=== PATIENT | male | born 1970 | race Caucasian/White ===

== ENCOUNTER → 2016-11-20 | Outpatient (CLI) | payer MEDICAID ==
[~2016-11-20] MED LIST: 00186-0370-20 IH; ASPIRIN 81M81 MG/TA2 PO; CELEBREX 200MG200 MG PO; CLEOCIN HCL300 MG PO; GLUCOPHAGE1000 MG PO; KEPPRA 500MG500 MG PO; LEVAQUIN 750MG750 M1 PO; LIPITOR 40MG TA40 MG PO; NEBULIZER; NORCO 325 MG-51 TAB PO; NYSTATIN OR100 MU/ML PO; PREDNISONE20 MG PO; SENOKOT S 50 MG1 TAB PO; SOMA 350MG350 MG/TAB PO; VALIUM 5MG T5 MG/TAB PO; VENTOLIN0.09 MG IH; VIMPAT100 MG PO; ZITHROMAX 250M250 MG PO; ZOCOR 20MG20 MG PO
[2016-11-20 14:39] LABS: ADD PATHOLOGY DIFF REVIEW NO
[2016-11-20 14:48] LABS: HEMATOCRIT 45.1 % (42.0-52.0); HEMOGLOBIN 15.5 g/dl (13.5-18.0); MEAN CELL VOLUME 88 fl (80.0-100.0); MEAN CORPUSCULAR HEMOGLOBIN 30 pg (27.0-31.0); MEAN CORPUSCULAR HGB CONC 34 g/dl (33.0-37.0); MEAN PLATELET VOLUME 9.6 fl (7.4-10.4); PLATELET COUNT 310 K/mm3 (130-400); RED BLOOD COUNT 5.12 M/mm3 (4.20-5.60); REDCELL DISTRIBUTION WIDTH-CV 13.5 % (11.5-14.5); WHITE BLOOD COUNT 9.4 K/mm3 (4.8-10.8)
[2016-11-20 14:57] LABS: ANION GAP 13 mmol/L (7-16); BLOOD UREA NITROGEN 16 mg/dL (9-20); C-REACTIVE PROTEIN < 0.5 mg/dL (0.0-0.9); CALCIUM 9.9 mg/dL (8.4-10.2); CARBON DIOXIDE 22 mmol/L (22-30); CHLORIDE 104 mmol/L (98-107); CREATININE, serum 0.68 mg/dL (0.66-1.25); GLUCOSE 174 mg/dL (74-106); POTASSIUM 4.4 mmol/L (3.4-5.0); SODIUM 139 mmol/L (137-145)
[2016-11-20 15:05] LABS: BAND 4 % (0-10); EOSINOPHIL 3 % (0-4); NEUTROPHILS 61 % (42.0-75.2); PLATELET ESTIMATE NORMAL (NORMAL); TOTAL CELLS COUNTED 100
== END ==
LOC: COL.LAB 14:09
PROVIDERS: Internal Medicine Pulmonary Disease
DX: J18.8 Other pneumonia, unspecified organism (principal)

== ENCOUNTER → 2016-11-27 | Outpatient (CLI) | payer MEDICAID | LOC: COL.PUL 14:48 | DX: J18.1 Lobar pneumonia, unspecified organism (principal) ==

== ENCOUNTER → 2016-12-17 | Outpatient (CLI) | payer MEDICAID | LOC: COL.RAD 11:15 | DX: M25.561 Pain in right knee (principal) ==

== ENCOUNTER → 2017-01-16 | Outpatient (CLI) | payer MEDICAID | LOC: COL.PUL 12:55 | DX: R06.02 Shortness of breath (principal); R94.2 Abnormal results of pulmonary function studies | CPT/HCPCS: J7674 ==

== ENCOUNTER 2017-01-18 09:59 | Emergency (ER) | payer MEDICAID ==
[~2017-01-18] VITALS: Ht 167.6 cm; Wt 89.5 kg
[~2017-01-18 09:59] MED LIST changes: -00186-0370-20 IH; -NYSTATIN OR100 MU/ML PO
[2017-01-18 10:04] VITALS: BP 155/117; PULSE 94; TEMP 98.4
[2017-01-18] MEDS ORDERED: 00186-0370-20 IH (10:21)
[2017-01-18] MEDS ORDERED: NYSTATIN OR100 MU/ML PO (10:34)
== END 2017-01-18 10:48 | disposition home or self-care (01) ==
LOC: COL.ER 09:59
DX: B37.0 Candidal stomatitis (principal); E11.65 Type 2 diabetes mellitus with hyperglycemia; I10 Essential (primary) hypertension; Z79.84 Long term (current) use of oral hypoglycemic drugs; F17.220 Nicotine dependence, chewing tobacco, uncomplicated

== ENCOUNTER 2017-03-05 16:53 | Emergency (ER) | payer MEDICAID ==
[~2017-03-05] VITALS: Ht 167.6 cm; Wt 81.8 kg
[~2017-03-05 16:53] MED LIST changes: +00186-0370-20 IH; +NYSTATIN OR100 MU/ML PO
[2017-03-05 17:37] LABS: PH 5 (5-8); SQUAMOUS EPITHELIAL None Seen /hpf; URINE APPEARANCE Clear; URINE BACTERIA None Seen /hpf; URINE BILIRUBIN Negative (NEGATIVE); URINE BLOOD Negative (NEGATIVE); URINE COLOR Yellow; URINE GLUCOSE 3+ (NEGATIVE); URINE KETONE Trace (NEGATIVE); URINE RBC 0-2 /hpf; URINE UROBILINOGEN Negative (NEGATIVE); URINE WBC 0-2 /hpf
[2017-03-05 18:09] LABS: BASO # 0.1 (0.0-0.2); BASO % 0.5 % (0.0-2.0); EOS # 0.2 (0.0-0.7); EOS % 1.2 % (0-4.0); GRAN # 10.7 (1.4-6.5); GRAN % 72.6 % (42.2-75.2); HEMATOCRIT 50.5 % (42.0-52.0); HEMOGLOBIN 17.5 g/dl (13.5-18.0); LYMPH # 2.2 (1.2-3.4); LYMPH % 15.2 % (20.0-51.0); MEAN CELL VOLUME 89 fl (80.0-100.0); MEAN CORPUSCULAR HEMOGLOBIN 31 pg (27.0-31.0); MEAN CORPUSCULAR HGB CONC 35 g/dl (33.0-37.0); MONO # 1.5 (0.1-0.6); MONO % 10.1 % (1.7-9.3); PLATELET COUNT 354 K/mm3 (130-400); RED BLOOD COUNT 5.69 M/mm3 (4.20-5.60); REDCELL DISTRIBUTION WIDTH-CV 12.9 % (11.5-14.5); WHITE BLOOD COUNT 14.7 K/mm3 (4.8-10.8)
[2017-03-05 18:21] LABS: CREATININE, serum 0.78 mg/dL (0.66-1.25); POTASSIUM 3.9 mmol/L (3.4-5.0)
[2017-03-05] MEDS ORDERED: LEVAQUIN 750MG750 M1 PO (18:36)
[2017-03-05] MEDS ORDERED: NYSTATIN OR100 MU/ML PO (18:37)
[2017-03-05 18:38] VITALS: TEMP 98.1
[2017-03-05 19:21] LABS: CHLAMYDIA/TRACH by PCR Male NOT DETECTED; Neisseria Gon by PCR Male NOT DETECTED
[2017-03-05 19:23] VITALS: BP 125/101; PULSE 111
== END 2017-03-05 19:27 | disposition home or self-care (01) ==
LOC: COL.ER 16:53
PROVIDERS: Emergency Medicine
DX: J01.90 Acute sinusitis, unspecified (principal); H66.91 Otitis media, unspecified, right ear; J45.909 Unspecified asthma, uncomplicated; B37.0 Candidal stomatitis; R30.0 Dysuria; Z88.0 Allergy status to penicillin
CPT/HCPCS: J7030

== ENCOUNTER 2017-11-03 16:31 | Emergency (ER) | payer MEDICAID ==
[~2017-11-03] VITALS: Ht 167.6 cm; Wt 84.1 kg
[2017-11-03 16:33] VITALS: BP 143/90; PULSE 77; TEMP 97.9
[2017-11-03] MEDS ORDERED: CLEOCIN HCL300 MG PO (16:48)
[2017-11-03] MEDS ORDERED: NORCO 325 MG-51 TAB PO (16:48)
== END 2017-11-03 16:56 | disposition home or self-care (01) ==
LOC: COL.ER 16:31
DX: K08.89 Other specified disorders of teeth and supporting structures (principal); J45.909 Unspecified asthma, uncomplicated; F17.210 Nicotine dependence, cigarettes, uncomplicated; Z79.84 Long term (current) use of oral hypoglycemic drugs; Z79.82 Long term (current) use of aspirin

== ENCOUNTER 2017-11-20 10:03 | Emergency (ER) | payer MEDICAID ==
[~2017-11-20] VITALS: Ht 167.6 cm; Wt 84.1 kg
[2017-11-20 10:07] VITALS: BP 161/91; PULSE 89; TEMP 98.1
[2017-11-20] MEDS ORDERED: CLEOCIN HCL300 MG PO (10:42)
== END 2017-11-20 11:01 | disposition home or self-care (01) ==
LOC: COL.ER 10:03
DX: K02.9 Dental caries, unspecified (principal); K04.7 Periapical abscess without sinus; F41.9 Anxiety disorder, unspecified; F17.200 Nicotine dependence, unspecified, uncomplicated; Z79.82 Long term (current) use of aspirin

== ENCOUNTER 2017-12-26 12:55 | Emergency (ER) | payer MEDICAID ==
[~2017-12-26] VITALS: Ht 167.6 cm; Wt 85.5 kg
[2017-12-26 12:57] VITALS: TEMP 98.2
[2017-12-26] MEDS ORDERED: DOXYCYCLINE 10100 MG PO (15:00)
[2017-12-26] MEDS ORDERED: PREDNISONE20 MG PO (15:00)
[2017-12-26] MEDS ORDERED: PHENERGAN W/CO120 M1 PO (15:00)
[2017-12-26 15:45] VITALS: BP 168/101; PULSE 97
== END 2017-12-26 16:44 | disposition home or self-care (01) ==
LOC: COL.ER 12:55
DX: J45.909 Unspecified asthma, uncomplicated (principal); J20.9 Acute bronchitis, unspecified; G89.29 Other chronic pain; Z79.84 Long term (current) use of oral hypoglycemic drugs; Z79.82 Long term (current) use of aspirin
CPT/HCPCS: J7512

== ENCOUNTER 2018-04-26 17:25 | Emergency (ER) | payer MEDICAID ==
[~2018-04-26] VITALS: Ht 167.6 cm; Wt 86.4 kg
[~2018-04-26 17:25] MED LIST changes: +DOXYCYCLINE 10100 MG PO; +PHENERGAN W/CO120 M1 PO
[2018-04-26 17:31] VITALS: TEMP 97.8
[2018-04-26 17:49] LABS: BASO # 0.1 (0.0-0.2); BASO % 1.2 % (0.0-2.0); EOS # 0.5 (0.0-0.7); EOS % 5.2 % (0-4.0); GRAN # 5.8 (1.4-6.5); GRAN % 65.7 % (42.2-75.2); HEMATOCRIT 46.1 % (42.0-52.0); HEMOGLOBIN 16.3 g/dl (13.5-18.0); LYMPH # 1.9 (1.2-3.4); LYMPH % 21.5 % (20.0-51.0); MEAN CELL VOLUME 88 fl (80.0-100.0); MEAN CORPUSCULAR HEMOGLOBIN 31 pg (27.0-31.0); MEAN CORPUSCULAR HGB CONC 35 g/dl (33.0-37.0); MONO # 0.6 (0.1-0.6); MONO % 6.2 % (1.7-9.3); PLATELET COUNT 283 K/mm3 (130-400); RED BLOOD COUNT 5.26 M/mm3 (4.20-5.60); REDCELL DISTRIBUTION WIDTH-CV 12.8 % (11.5-14.5)
[2018-04-26 17:56] LABS: ALBUMIN 4.2 gm/dL (3.5-5.0); BILIRUBIN,TOTAL 0.2 mg/dL (0.0-1.0); CALCIUM 9.7 mg/dL (8.4-10.2); CREATININE, serum 0.72 mg/dL (0.66-1.25); POTASSIUM 3.7 mmol/L (3.4-5.0); TOTAL PROTEIN 8.2 gm/dL (6.4-8.2)
[2018-04-26 18:12] LABS: PROLACTIN 13.1 ng/mL (3.7-17.9)
[2018-04-26 19:16] LABS: COLLECTION METHOD CLEAN CATCH
[2018-04-26 19:23] LABS: MUCOUS Present /lpf; PH 5 (5-8); SQUAMOUS EPITHELIAL None Seen /hpf; URINE APPEARANCE Clear; URINE BACTERIA None Seen /hpf; URINE BILIRUBIN Negative (NEGATIVE); URINE BLOOD Negative (NEGATIVE); URINE COLOR Yellow; URINE GLUCOSE 3+ (NEGATIVE); URINE KETONE Negative (NEGATIVE); URINE LEUKOCYTE ESTERASE Negative (NEGATIVE); URINE NITRATE Negative (NEGATIVE); URINE PROTEIN(semi-quant) Negative (NEGATIVE); URINE RBC 0-2 /hpf; URINE UROBILINOGEN Negative (NEGATIVE)
[2018-04-26 19:40] VITALS: BP 131/78; PULSE 75
== END 2018-04-26 19:40 | disposition home or self-care (01) ==
LOC: COL.ER 17:25
PROVIDERS: Emergency Medicine
DX: S09.90XA Unspecified injury of head, initial encounter (principal); R56.9 Unspecified convulsions; W19.XXXA Unspecified fall, initial encounter; Y92.009 Unspecified place in unspecified non-institutional (private) residence as the place of occurrence of the external cause; Z79.82 Long term (current) use of aspirin; Z79.84 Long term (current) use of oral hypoglycemic drugs
CPT/HCPCS: J1630; J2060; J3010; J7030

== ENCOUNTER 2018-05-24 17:17 | Emergency (ER) | payer MEDICAID ==
[~2018-05-24] VITALS: Ht 167.6 cm; Wt 84.1 kg
[2018-05-24 17:20] VITALS: BP 167/105; TEMP 99.3
[2018-05-24] MEDS ORDERED: NORCO 325 MG-51 TAB PO (20:31)
[2018-05-24 20:48] VITALS: PULSE 83
== END 2018-05-24 20:48 | disposition home or self-care (01) ==
LOC: COL.ER 17:17
DX: S20.211A Contusion of right front wall of thorax, initial encounter (principal); S40.021A Contusion of right upper arm, initial encounter; G40.909 Epilepsy, unspecified, not intractable, without status epilepticus; Z79.84 Long term (current) use of oral hypoglycemic drugs; Z79.82 Long term (current) use of aspirin; W01.0XXA Fall on same level from slipping, tripping and stumbling without subsequent striking against object, initial encounter; Y92.009 Unspecified place in unspecified non-institutional (private) residence as the place of occurrence of the external cause
CPT/HCPCS: A9284; J1170

== ENCOUNTER 2018-08-27 12:43 | Emergency (ER) | payer MEDICAID ==
[~2018-08-27] VITALS: Ht 167.6 cm; Wt 79.5 kg
[2018-08-27 12:46] VITALS: TEMP 98.1
[2018-08-27 14:46] LABS: BASO # 0.1 (0.0-0.2); BASO % 0.9 % (0.0-2.0); EOS # 0.3 (0.0-0.7); EOS % 2.7 % (0-4.0); GRAN # 8.4 (1.4-6.5); GRAN % 71.9 % (42.2-75.2); HEMATOCRIT 50.3 % (42.0-52.0); HEMOGLOBIN 17.6 g/dl (13.5-18.0); LYMPH # 1.8 (1.2-3.4); LYMPH % 15.5 % (20.0-51.0); MEAN CELL VOLUME 88 fl (80.0-100.0); MEAN CORPUSCULAR HEMOGLOBIN 31 pg (27.0-31.0); MEAN CORPUSCULAR HGB CONC 35 g/dl (33.0-37.0); MEAN PLATELET VOLUME 9.5 fl (7.4-10.4); MONO % 8.4 % (1.7-9.3); PLATELET COUNT 302 K/mm3 (130-400); REDCELL DISTRIBUTION WIDTH-CV 13.4 % (11.5-14.5)
[2018-08-27 14:56] LABS: ALBUMIN 4.6 gm/dL (3.5-5.0); BILIRUBIN,TOTAL 0.3 mg/dL (0.0-1.0); CALCIUM 9.4 mg/dL (8.4-10.2); CREATININE, serum 0.66 mg/dL (0.66-1.25); TOTAL PROTEIN 8.4 gm/dL (6.4-8.2)
[2018-08-27] MEDS ORDERED: ZITHROMAX Z PA250 MG PO (15:20)
[2018-08-27] MEDS ORDERED: PREDNISONE20 MG PO (15:20)
[2018-08-27] MEDS ORDERED: NORCO 325 MG-51 TAB PO (15:20)
[2018-08-27 15:39] VITALS: BP 134/77; PULSE 88
== END 2018-08-27 15:41 | disposition home or self-care (01) ==
LOC: COL.ER 12:43
PROVIDERS: Physician Assistant
DX: J40 Bronchitis, not specified as acute or chronic (principal); J98.01 Acute bronchospasm; R07.89 Other chest pain; G89.29 Other chronic pain; F17.220 Nicotine dependence, chewing tobacco, uncomplicated; E11.9 Type 2 diabetes mellitus without complications; Z79.84 Long term (current) use of oral hypoglycemic drugs; Z88.0 Allergy status to penicillin; Z79.82 Long term (current) use of aspirin

== ENCOUNTER 2018-10-12 15:19 | Emergency (ER) | payer MEDICAID ==
[~2018-10-12] VITALS: Ht 167.6 cm; Wt 79.5 kg
[~2018-10-12 15:19] MED LIST changes: +ZITHROMAX Z PA250 MG PO
[2018-10-12 15:25] VITALS: BP 160/100; TEMP 98
[2018-10-12] MEDS ORDERED: VIMPAT200 MG PO (15:35)
[2018-10-12] MEDS ORDERED: SOMA 350MG350 MG/TAB PO (15:37)
[2018-10-12] MEDS ORDERED: NORCO 325 MG-51 TAB PO (16:28)
[2018-10-12] MEDS ORDERED: FLEXERIL 1010 MG/TAB PO (16:28)
[2018-10-12 16:41] VITALS: PULSE 94
== END 2018-10-12 16:42 | disposition home or self-care (01) ==
LOC: COL.ER 15:19
DX: M54.9 Dorsalgia, unspecified (principal); E11.9 Type 2 diabetes mellitus without complications; Z79.4 Long term (current) use of insulin; Z88.0 Allergy status to penicillin; Z88.5 Allergy status to narcotic agent; F17.290 Nicotine dependence, other tobacco product, uncomplicated; W01.0XXA Fall on same level from slipping, tripping and stumbling without subsequent striking against object, initial encounter
CPT/HCPCS: J2360

== ENCOUNTER 2019-01-27 13:35 | Emergency (ER) | payer MEDICAID ==
[~2019-01-27] VITALS: Ht 167.6 cm; Wt 85.0 kg
[~2019-01-27 13:35] MED LIST changes: +FLEXERIL 1010 MG/TAB PO; +VIMPAT200 MG PO
[2019-01-27 14:02] VITALS: TEMP 99.9
[2019-01-27 15:30] LABS: ALANINE AMINOTRANSFERASE 15 U/L (21-72); ALBUMIN 3.6 gm/dL (3.5-5.0); ALKALINE PHOSPHATASE 70 U/L (50-136); ANION GAP 11 mmol/L (7-16); AST,SGOT 33 U/L (15-37); BILIRUBIN,TOTAL 0.4 mg/dL (0.0-1.0); BLOOD UREA NITROGEN 10 mg/dL (9-20); CALCIUM 8.9 mg/dL (8.4-10.2); CARBON DIOXIDE 24 mmol/L (22-30); CHLORIDE 103 mmol/L (98-107); CREATININE, serum 0.67 mg/dL (0.66-1.25); GLUCOSE 294 mg/dL (74-106); LIPASE 21 U/L (23-300); SODIUM 138 mmol/L (137-145); TOTAL PROTEIN 7.2 gm/dL (6.4-8.2)
[2019-01-27 15:34] LABS: BASO % 0.3 % (0.0-2.0); GRAN % 91.9 % (42.2-75.2); HEMATOCRIT 40.4 % (42.0-52.0); HEMOGLOBIN 13.8 g/dl (13.5-18.0); LYMPH # 0.4 (1.2-3.4); LYMPH % 3.8 % (20.0-51.0); MEAN CELL VOLUME 89 fl (80.0-100.0); MEAN CORPUSCULAR HEMOGLOBIN 31 pg (27.0-31.0); MEAN CORPUSCULAR HGB CONC 34 g/dl (33.0-37.0); MEAN PLATELET VOLUME 10.9 fl (7.4-10.4); MONO # 0.4 (0.1-0.6); MONO % 3.3 % (1.7-9.3); PLATELET COUNT 229 K/mm3 (130-400); RED BLOOD COUNT 4.52 M/mm3 (4.20-5.60); REDCELL DISTRIBUTION WIDTH-CV 13.9 % (11.5-14.5)
[2019-01-27 15:42] LABS: TROPONIN-I < 0.012 ng/mL (0.000-0.035)
[2019-01-27 16:17] LABS: COLLECTION METHOD CLEAN CATCH
[2019-01-27 16:28] LABS: MUCOUS Present /lpf; PH 6 (5-8); SQUAMOUS EPITHELIAL None Seen /hpf; URINE APPEARANCE Clear; URINE BACTERIA None Seen /hpf; URINE BILIRUBIN Negative (NEGATIVE); URINE BLOOD 1+ (NEGATIVE); URINE COLOR Yellow; URINE GLUCOSE 3+ (NEGATIVE); URINE KETONE 1+ (NEGATIVE); URINE LEUKOCYTE ESTERASE Negative (NEGATIVE); URINE NITRATE Negative (NEGATIVE); URINE PROTEIN(semi-quant) Negative (NEGATIVE); URINE RBC 0-2 /hpf; URINE UROBILINOGEN Negative (NEGATIVE); URINE WBC 0-2 /hpf
[2019-01-27 18:58] VITALS: BP 112/74; PULSE 101
== END 2019-01-27 19:02 | disposition short-term general hospital (02) ==
LOC: COL.ER 13:35
PROVIDERS: Emergency Medicine
DX: J18.1 Lobar pneumonia, unspecified organism (principal); A41.9 Sepsis, unspecified organism; E11.9 Type 2 diabetes mellitus without complications; I10 Essential (primary) hypertension; G40.909 Epilepsy, unspecified, not intractable, without status epilepticus; J45.909 Unspecified asthma, uncomplicated; Z79.82 Long term (current) use of aspirin
CPT/HCPCS: J1956; J2405; J7030

== ENCOUNTER 2019-10-06 08:33 | Emergency (ER) | payer SELFPAY ==
[~2019-10-06] VITALS: Ht 167.6 cm; Wt 80.9 kg
[2019-10-06 08:38] VITALS: BP 143/89; TEMP 97.8
[2019-10-06] MEDS ORDERED: NORVASC 5MG5 MG/TAB PO (09:02)
[2019-10-06 10:16] VITALS: PULSE 94
[2019-10-06] MEDS ORDERED: PREDNISONE20 MG PO (10:42)
[2019-10-06] MEDS ORDERED: ZITHROMAX 250M250 MG PO (10:42)
== END 2019-10-06 10:25 | disposition home or self-care (01) ==
LOC: COL.ER 08:33
DX: J45.901 Unspecified asthma with (acute) exacerbation (principal); E11.9 Type 2 diabetes mellitus without complications; F17.220 Nicotine dependence, chewing tobacco, uncomplicated; Z79.84 Long term (current) use of oral hypoglycemic drugs; Z88.8 Allergy status to other drugs, medicaments and biological substances; Z79.82 Long term (current) use of aspirin
CPT/HCPCS: J7512

== ENCOUNTER 2020-09-25 22:05 | Emergency (ER) | payer SELFPAY ==
[~2020-09-25] VITALS: Ht 167.6 cm; Wt 84.1 kg
[~2020-09-25 22:05] MED LIST changes: +NORVASC 5MG5 MG/TAB PO
[2020-09-25 22:16] VITALS: BP 136/96; TEMP 97.8
[2020-09-25] MEDS ORDERED: NORCO 325 MG-51 TAB PO (23:57)
[2020-09-25] MEDS ORDERED: CLEOCIN HCL300 MG PO (23:57)
[2020-09-26 00:07] VITALS: PULSE 74
== END 2020-09-26 00:07 | disposition home or self-care (01) ==
LOC: COL.ER 22:05
DX: K04.7 Periapical abscess without sinus (principal); F17.200 Nicotine dependence, unspecified, uncomplicated; Z86.74 Personal history of sudden cardiac arrest; Z88.0 Allergy status to penicillin; Z88.6 Allergy status to analgesic agent; Z88.8 Allergy status to other drugs, medicaments and biological substances; Z79.84 Long term (current) use of oral hypoglycemic drugs; Z79.82 Long term (current) use of aspirin

== ENCOUNTER 2020-10-01 18:40 | Observation (INO) | payer SELFPAY ==
[~2020-10-01] VITALS: Ht 167.6 cm; Wt 75.0 kg
[2020-10-01 19:52] LABS: BASO # 0.1 (0.0-0.2); BASO % 0.9 % (0.0-2.0); EOS # 0.7 (0.0-0.7); EOS % 5.6 % (0-4.0); GRAN # 8.3 (1.4-6.5); GRAN % 65.7 % (42.2-75.2); LYMPH # 2.4 (1.2-3.4); MEAN CELL VOLUME 89 fl (80.0-100.0); MEAN CORPUSCULAR HGB CONC 34 g/dl (33.0-37.0); MEAN PLATELET VOLUME 10.3 fl (7.4-10.4); MONO # 1.1 (0.1-0.6); MONO % 8.5 % (1.7-9.3); PLATELET COUNT 262 K/mm3 (130-400); RED BLOOD COUNT 3.09 M/mm3 (4.20-5.60); REDCELL DISTRIBUTION WIDTH-CV 13.2 % (11.5-14.5)
[2020-10-01 19:53] LABS: HEMATOCRIT 27.4 % (42.0-52.0); HEMOGLOBIN 9.4 g/dl (13.5-18.0); MEAN CORPUSCULAR HEMOGLOBIN 30 pg (27.0-31.0)
[2020-10-01 20:04] LABS: ALANINE AMINOTRANSFERASE 29 U/L (4-49); ALBUMIN 4.2 gm/dL (3.5-5.0); ALKALINE PHOSPHATASE 52 U/L (50-136); ANION GAP 10 mmol/L (7-16); AST,SGOT 48 U/L (15-37); BILIRUBIN,TOTAL 0.4 mg/dL (0.0-1.0); BLOOD UREA NITROGEN 48 mg/dL (9-20); CALCIUM 9.4 mg/dL (8.4-10.2); CARBON DIOXIDE 22 mmol/L (22-30); CHLORIDE 108 mmol/L (98-107); CREATININE, serum 1.04 (0.66-1.25); GLUCOSE 107 mg/dL (74-106); POTASSIUM 3.5 mmol/L (3.4-5.0); SODIUM 140 mmol/L (137-145); TOTAL PROTEIN 6.8 gm/dL (6.4-8.2)
[2020-10-01 20:38] LABS: TROPONIN-I < 0.012 ng/mL (0.000-0.035)
[2020-10-02] VITALS (11 sets, daily range): BP systolic 91–115; BP diastolic 49–83; PULSE 75–88; TEMP 97.6–98.4
[2020-10-02 03:05] LABS: MEAN CELL VOLUME 91 fl (80.0-100.0); MEAN CORPUSCULAR HGB CONC 34 g/dl (33.0-37.0); MEAN PLATELET VOLUME 10.8 fl (7.4-10.4); PLATELET COUNT 213 K/mm3 (130-400); REDCELL DISTRIBUTION WIDTH-CV 13.3 % (11.5-14.5)
[2020-10-02 03:09] LABS: CALCIUM 8.2 mg/dL (8.4-10.2); CREATININE, serum 0.88 (0.66-1.25); POTASSIUM 3.6 mmol/L (3.4-5.0)
[2020-10-02 03:10] LABS: HEMATOCRIT 22.8 % (42.0-52.0); HEMOGLOBIN 7.8 g/dl (13.5-18.0); MEAN CORPUSCULAR HEMOGLOBIN 31 pg (27.0-31.0)
[2020-10-02 04:48] LABS: BASO # 0.1 (0.0-0.2); BASO % 1.1 % (0.0-2.0); EOS # 0.7 (0.0-0.7); EOS % 9.6 % (0-4.0); GRAN # 3.9 (1.4-6.5); GRAN % 51.4 % (42.2-75.2); HEMATOCRIT 22.1 % (42.0-52.0); HEMOGLOBIN 7.5 g/dl (13.5-18.0); LYMPH # 2.2 (1.2-3.4); LYMPH % 28.4 % (20.0-51.0); MEAN CELL VOLUME 91 fl (80.0-100.0); MEAN CORPUSCULAR HEMOGLOBIN 31 pg (27.0-31.0); MEAN CORPUSCULAR HGB CONC 34 g/dl (33.0-37.0); MEAN PLATELET VOLUME 10.1 fl (7.4-10.4); MONO # 0.7 (0.1-0.6); MONO % 9.2 % (1.7-9.3); PLATELET COUNT 206 K/mm3 (130-400); RED BLOOD COUNT 2.44 M/mm3 (4.20-5.60); REDCELL DISTRIBUTION WIDTH-CV 13.2 % (11.5-14.5)
--- NOTE | 2020-10-02 17:46 | NUR ---
Patient sitting up in bed. he is tolerating meals. Vss on room air. He denies having any stools post op. Patient pain slightly improved after flexril, but it did make him drowsy. Blood sugar improved after given 6 units with lunch. Post op patient did have alot of juice, which may have contributed to blood sugars. plan of care reviewed & daughter made aware he would not discharge from hospital tonight.
--- NOTE | 2020-10-02 20:47 | NUR ---
Patient resting in bed, declines SCD.
[2020-10-03] VITALS: BP 115/65; PULSE 81; TEMP 97.8
[2020-10-03 04:05] VITALS: BP 108/58; PULSE 72; TEMP 94
[2020-10-03 04:19] VITALS: BP 98/65; PULSE 83; TEMP 97.9
[2020-10-03 07:36] LABS: CALCIUM 8.2 mg/dL (8.4-10.2); CREATININE, serum 0.86 (0.66-1.25); POTASSIUM 4.1 mmol/L (3.4-5.0)
[2020-10-03 07:37] LABS: BASO # 0.1 (0.0-0.2); BASO % 0.9 % (0.0-2.0); EOS # 0.6 (0.0-0.7); GRAN # 2.3 (1.4-6.5); GRAN % 39.8 % (42.2-75.2); HEMATOCRIT 24.6 % (42.0-52.0); HEMOGLOBIN 8.5 g/dl (13.5-18.0); LYMPH # 2.3 (1.2-3.4); LYMPH % 38.9 % (20.0-51.0); MEAN CELL VOLUME 92 fl (80.0-100.0); MEAN CORPUSCULAR HEMOGLOBIN 32 pg (27.0-31.0); MEAN CORPUSCULAR HGB CONC 35 g/dl (33.0-37.0); MEAN PLATELET VOLUME 11.2 fl (7.4-10.4); MONO # 0.6 (0.1-0.6); MONO % 10.2 % (1.7-9.3); PLATELET COUNT 212 K/mm3 (130-400); RED BLOOD COUNT 2.68 M/mm3 (4.20-5.60); REDCELL DISTRIBUTION WIDTH-CV 13.4 % (11.5-14.5)
[2020-10-03 08:28] VITALS: BP 109/69; PULSE 79; TEMP 97.5
--- NOTE | 2020-10-03 10:24 | NUR ---
First visit from the auriculotherapist. No needs right now.
[2020-10-03] MEDS ORDERED: NATURAL IRON65 MG PO (10:38)
[2020-10-03] MEDS ORDERED: PROTONIX 40MG T40 MG PO ×2 (11:36)
--- NOTE | 2020-10-03 11:39 | NUR ---
Hospitalist team has rounded & discharge orders obtained. Patient family taking him home. Patient tolerated breakfast. Iv dc. Tele off. VSS. Patient given all discharge instructions. Protonix script called into pharmacy. He is aware he also needs to start taking Iron. We discussed diet. Follow up appt reviewed. Patient denies questions or concerns. Patient wheeled out with belongings.
== END 2020-10-03 11:53 | disposition home or self-care (01) ==
LOC: COL.ER 18:40 → SURG 20:37 → EDBEDREQ 10-02 08:10 → SURG 10-03 11:53
PROVIDERS: Physician Assistant; ADMIT Family Medicine
DX: I95.1 Orthostatic hypotension (principal); D62 Acute posthemorrhagic anemia; K04.7 Periapical abscess without sinus; G40.909 Epilepsy, unspecified, not intractable, without status epilepticus; I10 Essential (primary) hypertension; K21.9 Gastro-esophageal reflux disease without esophagitis; E11.9 Type 2 diabetes mellitus without complications; R19.5 Other fecal abnormalities; J45.20 Mild intermittent asthma, uncomplicated; K25.7 Chronic gastric ulcer without hemorrhage or perforation; M19.012 Primary osteoarthritis, left shoulder; M16.12 Unilateral primary osteoarthritis, left hip; F17.210 Nicotine dependence, cigarettes, uncomplicated; M19.09 Primary osteoarthritis, other specified site; W19.XXXA Unspecified fall, initial encounter; Y93.9 Activity, unspecified; Y92.009 Unspecified place in unspecified non-institutional (private) residence as the place of occurrence of the external cause; Z88.0 Allergy status to penicillin; Z88.8 Allergy status to other drugs, medicaments and biological substances; Z88.6 Allergy status to analgesic agent; Z79.899 Other long term (current) drug therapy
CPT/HCPCS: 99232-AI; C9113; G0378; J1815; J2270; J2704; J3360; J7030

== ENCOUNTER 2020-12-27 23:43 | Emergency (ER) | payer SELFPAY ==
[~2020-12-27] VITALS: Ht 167.6 cm; Wt 86.4 kg
[~2020-12-27 23:43] MED LIST changes: +NATURAL IRON65 MG PO; +PROTONIX 40MG T40 MG PO
[2020-12-28 00:10] VITALS: TEMP 96.5
[2020-12-28 02:14] VITALS: BP 134/78; PULSE 78
[2020-12-29 13:04] LABS: ACETAMINOPHEN < 10 ug/mL (10-30); ALANINE AMINOTRANSFERASE 32 U/L (4-49); ALBUMIN 4.4 gm/dL (3.5-5.0); ALCOHOL(ethanol),MEDICAL < 10 mg/dL; ALKALINE PHOSPHATASE 79 U/L (50-136); ANION GAP 9 mmol/L (7-16); AST,SGOT 76 U/L (15-37); BILIRUBIN,TOTAL 0.5 mg/dL (0.0-1.0); BLOOD UREA NITROGEN 14 mg/dL (9-20); CALCIUM 9.1 mg/dL (8.4-10.2); CARBON DIOXIDE 26 mmol/L (22-30); CHLORIDE 104 mmol/L (98-107); CREATININE, serum 1.02 (0.66-1.25); GLUCOSE 139 mg/dL (74-106); POTASSIUM 3.6 mmol/L (3.4-5.0); SALICYLATE < 1.0 mg/dL; SODIUM 139 mmol/L (137-145); TOTAL PROTEIN 7.9 gm/dL (6.4-8.2)
[2020-12-29 16:29] LABS: BASO # 0.1 (0.0-0.2); BASO % 0.8 % (0.0-2.0); EOS # 0.9 (0.0-0.7); EOS % 7.5 % (0-4.0); GRAN # 8.2 (1.4-6.5); GRAN % 71.8 % (42.2-75.2); HEMATOCRIT 32.8 % (42.0-52.0); HEMOGLOBIN 9.5 g/dl (13.5-18.0); LYMPH # 1.2 (1.2-3.4); LYMPH % 10.6 % (20.0-51.0); MEAN CELL VOLUME 73 fl (80.0-100.0); MEAN CORPUSCULAR HEMOGLOBIN 21 pg (27.0-31.0); MEAN CORPUSCULAR HGB CONC 29 g/dl (33.0-37.0); MEAN PLATELET VOLUME 9.8 fl (7.4-10.4); PLATELET COUNT 365 K/mm3 (130-400); RED BLOOD COUNT 4.48 M/mm3 (4.20-5.60); REDCELL DISTRIBUTION WIDTH-CV 19.9 % (11.5-14.5)
== END 2020-12-28 02:14 | disposition home or self-care (01) ==
LOC: COL.ER 23:43
PROVIDERS: Emergency Medicine
DX: T40.2X1A Poisoning by other opioids, accidental (unintentional), initial encounter (principal); G40.909 Epilepsy, unspecified, not intractable, without status epilepticus; F17.210 Nicotine dependence, cigarettes, uncomplicated; Z86.74 Personal history of sudden cardiac arrest; Z88.0 Allergy status to penicillin; Z88.5 Allergy status to narcotic agent; Z88.6 Allergy status to analgesic agent; Z88.8 Allergy status to other drugs, medicaments and biological substances; Z79.51 Long term (current) use of inhaled steroids; Z79.84 Long term (current) use of oral hypoglycemic drugs; X58.XXXA Exposure to other specified factors, initial encounter
CPT/HCPCS: J2310; J7030

== ENCOUNTER 2021-05-10 20:33 | Emergency (ER) | payer OTHER ==
[~2021-05-10] VITALS: Ht 167.6 cm; Wt 79.5 kg
[2021-05-10 20:47] VITALS: TEMP 97.2
[2021-05-10 21:52] LABS: COLLECTION METHOD CLEAN CATCH
[2021-05-10 21:57] LABS: PH 6 (5-8); SQUAMOUS EPITHELIAL None Seen /hpf; URINE APPEARANCE Clear; URINE BACTERIA None Seen /hpf; URINE BILIRUBIN Negative (NEGATIVE); URINE BLOOD Negative (NEGATIVE); URINE COLOR Yellow; URINE GLUCOSE 3+ (NEGATIVE); URINE KETONE Negative (NEGATIVE); URINE LEUKOCYTE ESTERASE Negative (NEGATIVE); URINE NITRATE Negative (NEGATIVE); URINE PROTEIN(semi-quant) Negative (NEGATIVE); URINE RBC None Seen /hpf; URINE UROBILINOGEN Negative (NEGATIVE)
[2021-05-10 22:32] LABS: BASO # 0.1 (0.0-0.2); BASO % 0.8 % (0.0-2.0); EOS # 0.2 (0.0-0.7); EOS % 1.7 % (0-4.0); GRAN # 7.9 (1.4-6.5); GRAN % 74.8 % (42.2-75.2); HEMOGLOBIN 11.4 g/dl (13.5-18.0); LYMPH # 1.4 (1.2-3.4); LYMPH % 13.4 % (20.0-51.0); MEAN CELL VOLUME 79 fl (80.0-100.0); MEAN CORPUSCULAR HEMOGLOBIN 24 pg (27.0-31.0); MEAN CORPUSCULAR HGB CONC 31 g/dl (33.0-37.0); MEAN PLATELET VOLUME 9.6 fl (7.4-10.4); PLATELET COUNT 378 K/mm3 (130-400); RED BLOOD COUNT 4.68 M/mm3 (4.20-5.60); REDCELL DISTRIBUTION WIDTH-CV 18.5 % (11.5-14.5)
[2021-05-10 22:50] LABS: ALANINE AMINOTRANSFERASE 33 U/L (4-49); ALKALINE PHOSPHATASE 66 U/L (50-136); ANION GAP 5 mmol/L (7-16); AST,SGOT 51 U/L (15-37); BILIRUBIN,TOTAL 0.3 mg/dL (0.0-1.0); BLOOD UREA NITROGEN 16 mg/dL (9-20); CALCIUM 8.7 mg/dL (8.4-10.2); CARBON DIOXIDE 24 mmol/L (22-30); CHLORIDE 105 mmol/L (98-107); CREATININE, serum 0.63 (0.66-1.25); GLUCOSE 152 mg/dL (74-106); POTASSIUM 3.4 mmol/L (3.4-5.0); SODIUM 134 mmol/L (137-145); TOTAL PROTEIN 7.3 gm/dL (6.4-8.2)
[2021-05-10 22:53] LABS: C-REACTIVE PROTEIN < 0.5 mg/dL (0.0-0.9)
[2021-05-11] MEDS ORDERED: NORCO 325 MG-51 TAB PO (01:00)
[2021-05-11] MEDS ORDERED: NORVASC 5MG5 MG/TAB PO (01:00)
[2021-05-11] MEDS ORDERED: VALIUM 5MG T5 MG/TAB PO (01:00)
[2021-05-11] MEDS ORDERED: GLUCOPHAGE1000 MG PO (01:00)
[2021-05-11 01:16] VITALS: BP 168/110; PULSE 86
[2021-05-12] MEDS ORDERED: PERCOCET 325 MG1 TA2 PO (07:40)
== END 2021-05-11 01:16 | disposition home or self-care (01) ==
LOC: COL.ER 20:33
PROVIDERS: Emergency Medicine
DX: I10 Essential (primary) hypertension (principal); M54.5 Low back pain; M25.511 Pain in right shoulder; G89.29 Other chronic pain; E11.9 Type 2 diabetes mellitus without complications; G40.909 Epilepsy, unspecified, not intractable, without status epilepticus; Z88.6 Allergy status to analgesic agent; Z88.0 Allergy status to penicillin; Z88.1 Allergy status to other antibiotic agents; Z79.84 Long term (current) use of oral hypoglycemic drugs; Z79.899 Other long term (current) drug therapy
CPT/HCPCS: J2060; J2270; J7030; Q9967

== ENCOUNTER 2021-05-12 06:34 | Emergency (ER) | payer OTHER ==
[~2021-05-12] VITALS: Ht 167.6 cm; Wt 79.5 kg
[2021-05-12 06:55] VITALS: BP 151/82; TEMP 97.4
[2021-05-12] MEDS ORDERED: PERCOCET 325 MG1 TA2 PO (07:40)
[2021-05-12 07:50] VITALS: PULSE 96
[2021-05-13] MEDS ORDERED: FLEXERIL 1010 MG/TAB PO (12:40)
[2021-05-13] MEDS ORDERED: NORCO 325 MG-51 TAB PO (12:41)
== END 2021-05-12 07:45 | disposition home or self-care (01) ==
LOC: COL.ER 06:34
DX: S39.011A Strain of muscle, fascia and tendon of abdomen, initial encounter (principal); Z91.14 Patient's other noncompliance with medication regimen; X50.0XXA Overexertion from strenuous movement or load, initial encounter
CPT/HCPCS: J2270

== ENCOUNTER 2021-05-13 11:52 | Emergency (ER) | payer OTHER ==
[~2021-05-13] VITALS: Ht 167.6 cm; Wt 79.5 kg
[~2021-05-13 11:52] MED LIST changes: +PERCOCET 325 MG1 TA2 PO
[2021-05-13 12:05] VITALS: BP 154/98; TEMP 98.3
[2021-05-13] MEDS ORDERED: FLEXERIL 1010 MG/TAB PO (12:40)
[2021-05-13] MEDS ORDERED: NORCO 325 MG-51 TAB PO (12:41)
[2021-05-13 12:59] VITALS: PULSE 99
== END 2021-05-13 13:00 | disposition home or self-care (01) ==
LOC: COL.ER 11:52
DX: S39.011A Strain of muscle, fascia and tendon of abdomen, initial encounter (principal); I10 Essential (primary) hypertension; E11.9 Type 2 diabetes mellitus without complications; J45.20 Mild intermittent asthma, uncomplicated; G40.909 Epilepsy, unspecified, not intractable, without status epilepticus; Z88.6 Allergy status to analgesic agent; Z79.84 Long term (current) use of oral hypoglycemic drugs; Z79.899 Other long term (current) drug therapy
CPT/HCPCS: J2360

== ENCOUNTER 2021-05-15 15:39 | Emergency (ER) | payer OTHER ==
[~2021-05-15] VITALS: Ht 167.6 cm; Wt 79.5 kg
[2021-05-15 21:38] VITALS: BP 147/106; PULSE 93; TEMP 98.7
== END 2021-05-15 20:52 | disposition home or self-care (01) ==
LOC: COL.ER 15:39
DX: S39.011A Strain of muscle, fascia and tendon of abdomen, initial encounter (principal); R56.9 Unspecified convulsions; Z91.14 Patient's other noncompliance with medication regimen; Z88.5 Allergy status to narcotic agent; Z79.899 Other long term (current) drug therapy; X58.XXXA Exposure to other specified factors, initial encounter
CPT/HCPCS: J2360

== ENCOUNTER 2021-05-23 06:35 | Emergency (ER) | payer OTHER ==
[~2021-05-23] VITALS: Ht 167.6 cm; Wt 79.5 kg
[2021-05-23 06:42] VITALS: BP 139/87; TEMP 97.7
[2021-05-23] MEDS ORDERED: NORCO 325 MG-51 TAB PO (07:36)
[2021-05-23 07:53] VITALS: PULSE 99
== END 2021-05-23 07:53 | disposition home or self-care (01) ==
LOC: COL.ER 06:35
DX: S39.011A Strain of muscle, fascia and tendon of abdomen, initial encounter (principal); G89.29 Other chronic pain; M54.9 Dorsalgia, unspecified; G40.909 Epilepsy, unspecified, not intractable, without status epilepticus; Z88.6 Allergy status to analgesic agent; Z88.0 Allergy status to penicillin; Z88.1 Allergy status to other antibiotic agents; Z79.899 Other long term (current) drug therapy; X50.9XXA Other and unspecified overexertion or strenuous movements or postures, initial encounter

== ENCOUNTER 2021-08-19 10:24 | Emergency (ER) | payer OTHER ==
[~2021-08-19] VITALS: Ht 167.6 cm; Wt 81.8 kg
[2021-08-19 10:33] VITALS: TEMP 97
[2021-08-19] MEDS ORDERED: NORCO 325 MG-51 TAB PO (11:20)
[2021-08-19 11:39] VITALS: BP 160/110; PULSE 83
== END 2021-08-19 11:40 | disposition home or self-care (01) ==
LOC: COL.ER 10:24
DX: S83.92XA Sprain of unspecified site of left knee, initial encounter (principal); S93.402A Sprain of unspecified ligament of left ankle, initial encounter; E11.9 Type 2 diabetes mellitus without complications; I10 Essential (primary) hypertension; J45.909 Unspecified asthma, uncomplicated; Z88.5 Allergy status to narcotic agent; Z79.84 Long term (current) use of oral hypoglycemic drugs; Z79.899 Other long term (current) drug therapy; W01.0XXA Fall on same level from slipping, tripping and stumbling without subsequent striking against object, initial encounter; Y92.039 Unspecified place in apartment as the place of occurrence of the external cause

== ENCOUNTER 2021-11-06 12:52 | Emergency (ER) | payer SELFPAY ==
[~2021-11-06] VITALS: Ht 167.6 cm; Wt 81.8 kg
[2021-11-06 13:52] VITALS: TEMP 98.2
[2021-11-06 16:14] LABS: BASO # 0.2 K/mm3 (0.0-0.2); BASO % 1.2 % (0.0-2.0); EOS # 1.5 K/mm3 (0.0-0.7); EOS % 11.7 % (0.0-4.0); GRAN # 8.7 K/mm3 (1.4-6.5); GRAN % 67.6 % (42.2-75.2); HEMATOCRIT 45.3 % (42.0-52.0); HEMOGLOBIN 14.8 g/dl (13.5-18.0); LYMPH # 1.5 K/mm3 (1.2-3.4); LYMPH % 11.4 % (20.0-51.0); MEAN CELL VOLUME 83 fl (80.0-100.0); MEAN CORPUSCULAR HEMOGLOBIN 27 pg (27-31); MEAN CORPUSCULAR HGB CONC 33 g/dl (33.0-37.0); MEAN PLATELET VOLUME 9.8 fl (7.4-10.4); MONO % 7.9 % (1.7-9.3); PLATELET COUNT 354 K/mm3 (130-400); RED BLOOD COUNT 5.45 M/mm3 (4.20-5.60); REDCELL DISTRIBUTION WIDTH-CV 15.7 % (11.5-14.5)
[2021-11-06 16:33] LABS: ALANINE AMINOTRANSFERASE 24 U/L (0-55); ALKALINE PHOSPHATASE 84 U/L (40-150); ANION GAP 10 mmol/L (7-16); AST,SGOT 25 U/L (5-34); BILIRUBIN,TOTAL 0.7 mg/dL (0.2-1.2); BLOOD UREA NITROGEN 14 mg/dL (9-21); CALCIUM 8.8 mg/dL (8.4-10.2); CARBON DIOXIDE 22 mmol/L (22-29); CHLORIDE 104 mmol/L (98-107); CREATININE, serum 0.78 mg/dL (0.72-1.25); GLUCOSE 120 mg/dL (70-99); SODIUM 136 mmol/L (136-145); TOTAL PROTEIN 7.7 gm/dL (6.2-8.1)
[2021-11-06 16:39] LABS: TROPONIN-I < 0.010 ng/mL (0.00-0.033)
[2021-11-06 17:04] VITALS: BP 144/110; PULSE 98
== END 2021-11-06 17:20 | disposition home or self-care (01) ==
LOC: COL.ER 12:52
PROVIDERS: Physician Assistant
DX: U07.1 COVID-19 (principal); E11.9 Type 2 diabetes mellitus without complications; I10 Essential (primary) hypertension; Z88.0 Allergy status to penicillin; Z79.899 Other long term (current) drug therapy; Z79.84 Long term (current) use of oral hypoglycemic drugs
CPT/HCPCS: J7030

== ENCOUNTER 2021-11-28 12:49 | Emergency (ER) | payer SELFPAY ==
[~2021-11-28] VITALS: Ht 167.6 cm; Wt 77.3 kg
[2021-11-28 12:56] VITALS: TEMP 97.8
[2021-11-28] MEDS ORDERED: NORCO 325 MG-51 TAB PO (13:46)
[2021-11-28] MEDS ORDERED: CLEOCIN HCL300 MG PO (13:46)
[2021-11-28 13:52] VITALS: BP 138/78; PULSE 89
== END 2021-11-28 13:53 | disposition home or self-care (01) ==
LOC: COL.ER 12:49
DX: K02.9 Dental caries, unspecified (principal); E11.9 Type 2 diabetes mellitus without complications; Z88.0 Allergy status to penicillin; Z88.5 Allergy status to narcotic agent; Z79.84 Long term (current) use of oral hypoglycemic drugs

== ENCOUNTER 2022-01-26 02:03 | Emergency (ER) | payer SELFPAY ==
[~2022-01-26] VITALS: Ht 167.6 cm; Wt 77.3 kg
[2022-01-26 02:05] VITALS: TEMP 97.7
[2022-01-26] MEDS ORDERED: PREDNISONE50 MG PO (03:15)
[2022-01-26] MEDS ORDERED: PROAIR HFA0.09 MG/AC IH (03:15)
[2022-01-26 03:29] VITALS: BP 158/89; PULSE 89
== END 2022-01-26 03:35 | disposition home or self-care (01) ==
LOC: COL.ER 02:03
DX: J45.909 Unspecified asthma, uncomplicated (principal); Z91.14 Patient's other noncompliance with medication regimen; Z20.822 Contact with and (suspected) exposure to COVID-19
CPT/HCPCS: J2930

== ENCOUNTER 2022-02-12 17:38 | Emergency (ER) | payer SELFPAY ==
[~2022-02-12] VITALS: Ht 172.7 cm; Wt 81.8 kg
[~2022-02-12 17:38] MED LIST changes: +PREDNISONE50 MG PO; +PROAIR HFA0.09 MG/AC IH
[2022-02-12 17:51] VITALS: BP 177/110; TEMP 97.2
[2022-02-12] MEDS ORDERED: FLEXERIL 1010 MG/TAB PO (18:31)
[2022-02-12 18:48] VITALS: PULSE 118
[2022-02-12] MEDS ORDERED: PREDNISONE20 MG PO (22:49)
== END 2022-02-12 18:46 | disposition home or self-care (01) ==
LOC: COL.ER 17:38
DX: M25.511 Pain in right shoulder (principal); J45.901 Unspecified asthma with (acute) exacerbation; Z91.19 Patient's noncompliance with other medical treatment and regimen; Z86.16 Personal history of COVID-19; X50.0XXA Overexertion from strenuous movement or load, initial encounter; Y93.F2 Activity, caregiving, lifting; Y92.59 Other trade areas as the place of occurrence of the external cause; Y99.0 Civilian activity done for income or pay

== ENCOUNTER 2022-04-27 12:57 | Emergency (ER) | payer SELFPAY ==
[~2022-04-27] VITALS: Ht 167.6 cm; Wt 81.8 kg
[2022-04-27 13:25] VITALS: BP 150/107
[2022-04-27 14:11] LABS: BASO # 0.1 K/mm3 (0.0-0.2); BASO % 0.6 % (0.0-2.0); EOS # 0.1 K/mm3 (0.0-0.7); EOS % 1.1 % (0.0-4.0); GRAN # 10.1 K/mm3 (1.4-6.5); GRAN % 83.1 % (42.2-75.2); HEMATOCRIT 43.4 % (42.0-52.0); HEMOGLOBIN 15.1 g/dl (13.5-18.0); LYMPH # 1.1 K/mm3 (1.2-3.4); LYMPH % 9.3 % (20.0-51.0); MEAN CELL VOLUME 88 fl (80.0-100.0); MEAN CORPUSCULAR HEMOGLOBIN 31 pg (27-31); MEAN CORPUSCULAR HGB CONC 35 g/dl (33.0-37.0); MEAN PLATELET VOLUME 10.4 fl (7.4-10.4); MONO # 0.7 K/mm3 (0.1-0.6); MONO % 5.7 % (1.7-9.3); PLATELET COUNT 304 K/mm3 (130-400); RED BLOOD COUNT 4.94 M/mm3 (4.20-5.60); REDCELL DISTRIBUTION WIDTH-CV 13.8 % (11.5-14.5)
[2022-04-27 14:25] LABS: ALBUMIN 3.7 gm/dL (3.5-5.0); BILIRUBIN,TOTAL 0.4 mg/dL (0.2-1.2); CALCIUM 9.3 mg/dL (8.4-10.2); CREATININE, serum 1.06 mg/dL (0.72-1.25); POTASSIUM 4.1 mmol/L (3.5-4.5); TOTAL PROTEIN 7.2 gm/dL (6.2-8.1)
[2022-04-27 15:05] LABS: COLLECTION METHOD CLEAN CATCH
[2022-04-27 15:21] LABS: PH 5 (5-8); SQUAMOUS EPITHELIAL None Seen /hpf (0-10); URINE APPEARANCE Clear (CLEAR/HAZY); URINE BACTERIA None Seen /hpf (NONE SEEN); URINE BILIRUBIN Negative (NEGATIVE); URINE BLOOD Negative (NEGATIVE); URINE COLOR Straw (YELLOW); URINE GLUCOSE 3+ (NEGATIVE); URINE KETONE Trace (NEGATIVE); URINE LEUKOCYTE ESTERASE Negative (NEGATIVE); URINE NITRATE Negative (NEGATIVE); URINE PROTEIN(semi-quant) Negative (NEGATIVE); URINE RBC 0-2 /hpf (0-2); URINE UROBILINOGEN Negative (NEGATIVE)
[2022-04-27] MEDS ORDERED: PROAIR HFA0.09 MG/AC IH (17:42)
[2022-04-27] MEDS ORDERED: PRILOSEC 20MG20 MG PO (17:42)
[2022-04-27] MEDS ORDERED: GLUCOPHAGE500 MG/TAB PO (17:42)
[2022-04-27 17:48] VITALS: PULSE 86
== END 2022-04-27 17:48 | disposition home or self-care (01) ==
LOC: COL.ER 12:57
PROVIDERS: Emergency Medicine; Nurse Practitioner Family
DX: K29.70 Gastritis, unspecified, without bleeding (principal); J45.909 Unspecified asthma, uncomplicated; E11.9 Type 2 diabetes mellitus without complications; Z20.822 Contact with and (suspected) exposure to COVID-19; Z79.84 Long term (current) use of oral hypoglycemic drugs; Z28.310 Unvaccinated for COVID-19
CPT/HCPCS: C9113; J2270; J2405; J7030; Q9967

== ENCOUNTER 2023-08-13 08:09 | Emergency (ER) | payer SELFPAY ==
[~2023-08-13] VITALS: Ht 167.6 cm; Wt 81.8 kg
[~2023-08-13 08:09] MED LIST changes: +GLUCOPHAGE500 MG/TAB PO; +PRILOSEC 20MG20 MG PO; +ZOFRAN ODT4 MG PO
[2023-08-13 08:14] VITALS: BP 126/92; TEMP 98.1
[2023-08-13 10:25] VITALS: PULSE 101
== END 2023-08-13 10:25 | disposition home or self-care (01) ==
LOC: COL.ER 08:09
DX: S06.0XAA Concussion with loss of consciousness status unknown, initial encounter (principal); S00.411A Abrasion of right ear, initial encounter; Z28.310 Unvaccinated for COVID-19; W01.10XA Fall on same level from slipping, tripping and stumbling with subsequent striking against unspecified object, initial encounter; Y92.009 Unspecified place in unspecified non-institutional (private) residence as the place of occurrence of the external cause

== ENCOUNTER 2023-11-18 08:57 | Emergency (ER) | payer OTHER ==
[~2023-11-18] VITALS: Ht 167.6 cm; Wt 77.3 kg
[2023-11-18 09:05] VITALS: BP 161/88; TEMP 98.1
[2023-11-18] MEDS ORDERED: PEN-VEE K500 MG PO (09:35)
[2023-11-18] MEDS ORDERED: GLUCOPHAGE500 MG/TAB PO (09:36)
[2023-11-18] MEDS ORDERED: oxyCODONE/Acetaminophen 5-325 MG TAB PO ONE (09:45)
[2023-11-18 10:12] VITALS: PULSE 95
[2023-11-18] MEDS ORDERED: CLEOCIN HC150 MG/CAP PO (10:37)
== END 2023-11-18 10:12 | disposition home or self-care (01) ==
LOC: COL.ER 08:57
DX: K08.89 Other specified disorders of teeth and supporting structures (principal); E11.9 Type 2 diabetes mellitus without complications; Z88.0 Allergy status to penicillin